=== PATIENT | female | born 1965 | race Caucasian/White ===

== ENCOUNTER 2020-10-19 08:20 | Outpatient (CLI) | payer OTHER | END 2020-10-19 20:48 | disposition home or self-care (01) | LOC: SMA 08:20 | PROVIDERS: ATTEND Internal Medicine | DX: Z12.31 Encounter for screening mammogram for malignant neoplasm of breast (principal); N64.89 Other specified disorders of breast; I10 Essential (primary) hypertension | CPT/HCPCS: 77067; 93880 ==

== ENCOUNTER 2021-07-10 16:07 | Outpatient (CLI) | payer OTHER | END 2021-07-10 20:06 | disposition home or self-care (01) | LOC: SRD 16:07 | PROVIDERS: ATTEND Internal Medicine | DX: M47.812 Spondylosis without myelopathy or radiculopathy, cervical region (principal); M77.8 Other enthesopathies, not elsewhere classified; M54.2 Cervicalgia | CPT/HCPCS: 72050-TC ==